=== PATIENT | female | born 1945 ===

== ENCOUNTER 2017-12-27 09:30 | Inpatient (IN) | payer OTHER ==
[~2017-12-27] VITALS: Ht 172.7 cm; Wt 104.3 kg
[2017-12-27] MEDS ORDERED: ZYPREXA2.5 MG PO (09:59)
[2017-12-27] MEDS ORDERED: XANAX1 MG PO (09:59)
[2017-12-27] MEDS ORDERED: LUVOX (09:59)
[2017-12-27] MEDS ORDERED: LUVOX PO (10:00)
[2017-12-27] MEDS ORDERED: LIPITO PO (10:00)
[2017-12-27] MEDS ORDERED: XANAX XR0.5 MG PO (10:00)
[2018-01-04] MEDS ORDERED: LIPITOR20 MG PO (09:22)
[2018-01-04] MEDS ORDERED: FLUVOXAMINE MA100 MG PO (09:23)
== END 2018-01-06 17:59 | DRG 470 ==
LOC: O/R 01-04 05:58 → SURG 01-04 07:00 → SURH 01-04 12:18
PROVIDERS: Orthopaedic Surgery
PROC: 0SRC0J9 Replacement of Right Knee Joint with Synthetic Substitute, Cemented, Open Approach (ICD-10-PCS; principal; 2018-01-04 07:00)
DX: M17.11 Unilateral primary osteoarthritis, right knee (principal); D62 Acute posthemorrhagic anemia; E78.49 Other hyperlipidemia; F41.8 Other specified anxiety disorders; R73.01 Impaired fasting glucose